=== PATIENT | female | born 1995 | race Caucasian/White ===

== ENCOUNTER 2019-06-16 15:05 | Emergency (ER) | payer OTHER ==
[~2019-06-16] VITALS: Ht 154.9 cm; Wt 68.0 kg
[2019-06-16 15:51] VITALS: BP 132/80
== END 2019-06-16 15:52 | disposition home or self-care (01) ==
LOC: M.ERS 15:05
DX: S61.211A Laceration without foreign body of left index finger without damage to nail, initial encounter (principal); W26.8XXA Contact with other sharp object(s), not elsewhere classified, initial encounter; Y93.89 Activity, other specified; Y92.89 Other specified places as the place of occurrence of the external cause; Y99.8 Other external cause status

== ENCOUNTER 2019-07-01 12:39 | Emergency (ER) | payer OTHER ==
[~2019-07-01] VITALS: Ht 154.9 cm; Wt 72.6 kg
[2019-07-01 13:01] LABS: URINE BILIRUBIN NEGATIVE (Negative); URINE BLOOD NEGATIVE (Negative); URINE CLARITY CLEAR; URINE COLOR YELLOW; URINE GLUCOSE-RANDOM NEGATIVE (Negative); URINE KETONES NEGATIVE (Negative); URINE LEUKOCYTES-REFLEX NEGATIVE (Negative); URINE NITRITE-REFLEX NEGATIVE (Negative); URINE PROTEIN NEGATIVE (Negative); URINE UROBILINOGEN 0.2 E.U./dl (0.2-1.0)
[2019-07-01 13:57] LABS: ABSOLUTE EOSINOPHILS 0.1 thou/uL (0.0-0.7); ABSOLUTE MONOCYTES 0.7 thou/uL (0.0-1.2); ABSOLUTE NEUTROPHILS 11.8 thou/uL (1.6-8.1); BASOPHILS 0.3 %; EOSINOPHILS 0.5 %; HEMATOCRIT 40.8 % (37.0-47.0); HEMOGLOBIN 13.6 gm/dL (12.0-15.0); LYMPHOCYTES 13.8 %; MCH 27.1 pg (26.0-34.0); MCHC 33.4 g/dL (28.0-37.0); MCV 81.3 fL (80.0-100.0); MONOCYTES 4.7 %; NUCLEATED RBCS 0 /100WBC; PLATELET COUNT* 349 thou/uL (150-400); POLYS 80.7 %; RBC 5.02 mil/uL (4.20-5.00); RDW-CV 14.4 % (10.5-14.5); WBC 14.6 thou/uL (4.0-11.0)
[2019-07-01 14:06] LABS: CALCIUM 9.6 mg/dL (8.5-10.1); CREATININE 0.8 mg/dL (0.6-1.3); POTASSIUM 3.6 mmol/L (3.5-5.1)
[2019-07-01 14:11] LABS: ALBUMIN 4.1 g/dL (3.4-5.0); TOTAL BILIRUBIN 0.2 mg/dL (<0.1-1.0); TOTAL PROTEIN 8.3 g/dL (6.4-8.2)
[2019-07-01] MEDS ORDERED: FLAGYL500 M1 PO (15:36)
[2019-07-01] MEDS ORDERED: MOBIC7.5 MG PO (15:36)
[2019-07-01 16:05] VITALS: BP 135/57
== END 2019-07-01 16:06 | disposition home or self-care (01) ==
LOC: M.ERS 12:39
PROVIDERS: Physician Assistant
DX: N76.0 Acute vaginitis (principal); E28.2 Polycystic ovarian syndrome; R10.2 Pelvic and perineal pain

== ENCOUNTER 2019-07-21 21:09 | Emergency (ER) | payer OTHER ==
[~2019-07-21] VITALS: Ht 154.9 cm; Wt 71.2 kg
[~2019-07-21 21:09] MED LIST: FLAGYL500 M1 PO; MOBIC7.5 MG PO
[2019-07-21 21:51] LABS: URINE BILIRUBIN NEGATIVE (Negative); URINE BLOOD 2+ (Negative); URINE CLARITY CLEAR; URINE COLOR YELLOW; URINE GLUCOSE-RANDOM NEGATIVE (Negative); URINE KETONES NEGATIVE (Negative); URINE LEUKOCYTES-REFLEX NEGATIVE (Negative); URINE NITRITE-REFLEX NEGATIVE (Negative); URINE PROTEIN NEGATIVE (Negative); URINE SPECIFIC GRAVITY >= 1.030 (1.005-1.030); URINE UROBILINOGEN 0.2 E.U./dl (0.2-1.0)
[2019-07-21 22:08] LABS: BACTERIA-REFLEX >30 Many /HPF (None Seen); CASTS None Seen /LPF (None Seen); CRYSTALS None Seen /LPF (None Seen); MUCUS 4-6 Moderate strn/LPF (None Seen); SQUAMOUS 4-10 Moderate /LPF (0-3); URINE RBC 3-10 Few /HPF (0-2); URINE WBC-REFLEX 0-5 Rare /HPF (0-5)
[2019-07-21] MEDS ORDERED: CLEOCIN100 MG VAG (22:25)
[2019-07-21] MEDS ORDERED: DIFLUCAN150 MG PO (22:25)
[2019-07-21 22:50] VITALS: BP 152/104
== END 2019-07-21 22:51 | disposition home or self-care (01) ==
LOC: M.ERS 21:09
PROVIDERS: Emergency Medicine
DX: N76.0 Acute vaginitis (principal)

== ENCOUNTER 2020-05-06 04:01 | Emergency (ER) | payer OTHER ==
[~2020-05-06] VITALS: Ht 154.9 cm; Wt 70.3 kg
[~2020-05-06 04:01] MED LIST changes: +CLEOCIN100 MG VAG; +DIFLUCAN150 MG PO
[2020-05-06 05:04] LABS: INFLUENZA A ANTIGEN Negative (Negative); INFLUENZA B ANTIGEN Negative (Negative)
[2020-05-06] MEDS ORDERED: ZPAK PO (05:17)
[2020-05-06] MEDS ORDERED: PREDNISONE 20 M20 M1 PO (05:17)
[2020-05-06 05:42] VITALS: BP 98/61
== END 2020-05-06 05:45 | disposition home or self-care (01) ==
LOC: M.ERS 04:01
PROVIDERS: Family Medicine
DX: U07.1 COVID-19 (principal)

== ENCOUNTER 2020-05-12 13:35 | Emergency (ER) | payer OTHER ==
[~2020-05-12] VITALS: Ht 154.9 cm; Wt 70.3 kg
[~2020-05-12 13:35] MED LIST changes: +PREDNISONE 20 M20 M1 PO; +ZPAK PO
[2020-05-12 14:48] LABS: ABSOLUTE LYMPHOCYTES 1.7 thou/uL (0.8-5.3); ABSOLUTE MONOCYTES 0.4 thou/uL (0.0-1.2); ABSOLUTE NEUTROPHILS 5.1 thou/uL (1.6-8.1); BASOPHILS 0.3 %; EOSINOPHILS 0.1 %; HEMATOCRIT 41.1 % (37.0-47.0); HEMOGLOBIN 13.3 gm/dL (12.0-15.0); LYMPHOCYTES 23.2 %; MCH 26.1 pg (26.0-34.0); MCHC 32.4 g/dL (28.0-37.0); MCV 80.6 fL (80.0-100.0); MPV 7.6 fl. (7.2-11.1); NUCLEATED RBCS 0 /100WBC; PLATELET COUNT* 288 thou/uL (150-400); POLYS 71.4 %; RBC 5.09 mil/uL (4.20-5.00); RDW-CV 16.1 % (10.5-14.5); WBC 7.2 thou/uL (4.0-11.0)
[2020-05-12 14:59] LABS: POTASSIUM 3.3 mmol/L (3.5-5.1)
[2020-05-12 15:08] LABS: ALBUMIN 3.6 g/dL (3.4-5.0); TOTAL BILIRUBIN 0.3 mg/dL (<0.1-1.0); TOTAL PROTEIN 7.9 g/dL (6.4-8.2)
[2020-05-12] MEDS ORDERED: ONDANSETRON HCL4 M2 PO (16:05)
[2020-05-12] MEDS ORDERED: VENTOLIN HFA 1818 GM INH (16:05)
[2020-05-12] MEDS ORDERED: APAP W/CODEINE1 TA2 PO (16:05)
[2020-05-12] MEDS ORDERED: DOXYCYCLINE 10100 MG PO (16:07)
[2020-05-12 17:04] VITALS: BP 117/76
--- NOTE | 2020-05-13 09:33 | EKG ---
[place] [address] ELECTROCARDIOGRAM REPORT Name: ALLEN ARGUETAYLA Room: [facility]#: [id number] Admission: 05/12/20 Attend Phys: Discharge: 05/12/20 Date of : [birth year] Date of Service: 05/12/20 1535 Report #: [id number] THIS REPORT FOR: //name// [facility] ED Test Date: 2020-05-12 Test Time: 15:35:33 Pat Name: LAYLA ARGUETA Department: Room: Gender: Occupational Therapy Aide: DAMIEN : 1995 Requested By: Paula Hidalgo Order Number: [id number] MD: Kelby Merida Measurements Intervals [place] Rate: 92 P: 17 MT: 140 QRS: 34 QRSD: 86 T: 18 QT: 362 QTc: 448 Interpretive Statements Sinus rhythm Probable left atrial enlargement Borderline T abnormalities, anterior leads No previous ECG available for comparison Electronically Signed On 05-13-2020 9:33:07 SAFETY ADMIN ASSISTANT by Kelby Merida [email or web address] <ELECTRONICALLY SIGNED> By: Kelby Merida MD, [facility] 05/13/20 0933 1535 1535 Kelby Merida MD, FAC /EPI
== END 2020-05-12 17:06 | disposition home or self-care (01) ==
LOC: M.ERS 13:35
PROVIDERS: Nurse Practitioner Family
DX: U07.1 COVID-19 (principal); R07.89 Other chest pain; R11.0 Nausea

== ENCOUNTER 2020-12-24 09:00 | Emergency (ER) | payer OTHER ==
[~2020-12-24] VITALS: Ht 154.9 cm; Wt 69.0 kg
[~2020-12-24 09:00] MED LIST changes: +APAP W/CODEINE1 TA2 PO; +DOXYCYCLINE 10100 MG PO; +ONDANSETRON HCL4 M2 PO; +VENTOLIN HFA 1818 GM INH
[2020-12-24 09:22] LABS: ABSOLUTE LYMPHOCYTES 2.2 thou/uL (0.8-5.3); ABSOLUTE MONOCYTES 0.5 thou/uL (0.0-1.2); ABSOLUTE NEUTROPHILS 6.2 thou/uL (1.6-8.1); BASOPHILS 0.4 %; EOSINOPHILS 0.5 %; HEMATOCRIT 39.1 % (37.0-47.0); HEMOGLOBIN 13.1 gm/dL (12.0-15.0); LYMPHOCYTES 24.8 %; MCH 28.2 pg (26.0-34.0); MCHC 33.6 g/dL (28.0-37.0); MCV 83.9 fL (80.0-100.0); MONOCYTES 5.2 %; MPV 7.7 fl. (7.2-11.1); NUCLEATED RBCS 0 /100WBC; PLATELET COUNT* 320 thou/uL (150-400); POLYS 69.1 %; RBC 4.66 mil/uL (4.20-5.00); RDW-CV 14.5 % (10.5-14.5)
[2020-12-24 09:26] LABS: URINE BILIRUBIN NEGATIVE (Negative); URINE BLOOD NEGATIVE (Negative); URINE CLARITY CLEAR; URINE COLOR YELLOW; URINE GLUCOSE-RANDOM NEGATIVE (Negative); URINE KETONES NEGATIVE (Negative); URINE LEUKOCYTES-REFLEX 1+ (Negative); URINE NITRITE-REFLEX NEGATIVE (Negative); URINE PROTEIN NEGATIVE (Negative); URINE SPECIFIC GRAVITY 1.025 (1.005-1.030); URINE UROBILINOGEN 0.2 E.U./dl (0.2-1.0)
[2020-12-24 09:34] LABS: CALCIUM 8.8 mg/dL (8.5-10.1); CREATININE 0.7 mg/dL (0.6-1.3); POTASSIUM 3.8 mmol/L (3.5-5.1)
[2020-12-24 09:34] LABS: BACTERIA-REFLEX 1-9 Few /HPF (None Seen); CASTS None Seen /LPF (None Seen); CRYSTALS None Seen /LPF (None Seen); MUCUS 0-3 Light strn/LPF (None Seen); SQUAMOUS 4-10 Moderate /LPF (0-3); URINE RBC 0-2 Rare /HPF (0-2); URINE WBC-REFLEX 6-15 Few /HPF (0-5)
[2020-12-24 09:38] LABS: ALBUMIN 3.9 g/dL (3.4-5.0); TOTAL BILIRUBIN 0.3 mg/dL (<0.1-1.0); TOTAL PROTEIN 7.4 g/dL (6.4-8.2)
[2020-12-24] MEDS ORDERED: FLAGYL500 M1 PO (10:01)
[2020-12-24] MEDS ORDERED: DOXYCYCLINE 10100 MG PO (10:01)
[2020-12-24 10:21] VITALS: BP 144/99
== END 2020-12-24 10:22 | disposition home or self-care (01) ==
LOC: M.ERS 09:00
PROVIDERS: Family Medicine
DX: N76.0 Acute vaginitis (principal); B96.89 Other specified bacterial agents as the cause of diseases classified elsewhere